=== PATIENT | male | born 1940 | race Caucasian/White ===

== ENCOUNTER 2021-06-25 08:15 | Day surgery (SDC) | payer MEDICARE, MEDICAID ==
[~2021-06-25] VITALS: Ht 177.8 cm; Wt 81.8 kg
[2021-06-25] MEDS ORDERED: fentaNYL/PF 50MCG/1 ML 2ML syringe ONE (08:25)
[2021-06-25] MEDS ORDERED: MIDAZolam 1 MG/ML 5ML VIAL ONE (08:25)
[2021-06-25] MEDS ORDERED: LIDOcaine Viscous 15ml cup ONE (08:25)
[2021-06-25] MEDS ORDERED: diphenhydrAMINE 50 mg/ml inj ONE (08:25)
[2021-06-25 08:28] VITALS: BP 152/82
[2021-06-25] MEDS ORDERED: OLME20TA14 PO (08:36)
[2021-06-25] MEDS ORDERED: XAL0.005OS OP (08:37)
[2021-06-25] MEDS ORDERED: ROSU5TAB PO (08:38)
[2021-06-25] MEDS ORDERED: CYCL1DRO (08:39)
[2021-06-25] MEDS ORDERED: ALLO100T56 PO (08:39)
[2021-06-25] MEDS ORDERED: FAMO20TA8 PO (08:40)
[2021-06-25] MEDS ORDERED: AMYL1CAP56 (08:41)
[2021-06-25] MEDS ORDERED: CHLO118L3 TOP (08:41)
[2021-06-25 10:45] VITALS: BP 120/71
[2021-06-25 10:55] VITALS: BP 122/67
[2021-06-25 11:05] VITALS: BP 119/70
[2021-06-25 11:15] VITALS: BP 130/73
== END 2021-06-25 11:30 | disposition home or self-care (01) ==
LOC: GI LAB 08:15
PROVIDERS: ATTEND Internal Medicine Gastroenterology
DX: Z09 Encounter for follow-up examination after completed treatment for conditions other than malignant neoplasm (principal); R10.13 Epigastric pain; R12 Heartburn; K22.89 Other specified disease of esophagus; K29.60 Other gastritis without bleeding; Z86.010 Personal history of colon polyps; I10 Essential (primary) hypertension; Z95.5 Presence of coronary angioplasty implant and graft; Z79.899 Other long term (current) drug therapy
CPT/HCPCS: 43239; 88305; 99153; G0105; G0500; J1200; J2250; J3010; J7030; Z7512; 45378; 99152; A4620